=== PATIENT | female | born 1945 | race Caucasian/White ===

== ENCOUNTER 2017-03-24 07:55 | Inpatient (IN) | payer MEDICARE, OTHER ==
[~2017-03-24] VITALS: Ht 160 cm; Wt 84.2 kg
[2017-03-24] MEDS ORDERED: SODIUM CHLORIDE FLUSH 10ML SYR IVF ONE (08:30)
[2017-03-24] MEDS ORDERED: ALBUTEROL/IPRATROPIUM 2.5MG/0.5MG, 3 ML NPPB SCH (08:30)
[2017-03-24] MEDS ORDERED: SODIUM CHLORIDE 0.9% 1,000ML IVBOLUS ONE (08:30)
[2017-03-24] MEDS ORDERED: ALBUTEROL/IPRATROPIUM 2.5MG/0.5MG, 3 ML ONE (08:35)
[2017-03-24 08:51] LABS: RAPID INFLUENZA A Negative (Negative); RAPID INFLUENZA B Negative (Negative)
[2017-03-24 09:13] LABS: ALBUMIN 3.5 g/dL (3.4-5.0); ANION GAP 8 mmol/L (5-15); BASOPHILS % (AUTO) 0 % (0-1); CALCIUM 8.5 mg/dL (8.5-10.1); CHLORIDE 104 mmol/L (98-107); EOSINOPHILS # (AUTO) 0.08 x10^3/uL (0-0.4); EOSINOPHILS % (AUTO) 1 % (1-7); LYMPHOCYTES # (AUTO) 0.43 x10^3/uL (1-3.4); LYMPHOCYTES % (AUTO) 4 % (22-44); MD NO; MEAN CORPUSCULAR HEMOGLOBIN 31.6 pg (27.0-34.8); MEAN CORPUSCULAR HGB CONC 33.6 g/dL (32.4-35.8); MEAN CORPUSCULAR VOLUME 93.9 fL (80-100); MEAN PLATELET VOLUME 7.2 fL (7.4-10.4); MONOCYTES # (AUTO) 0.98 x10^3/uL (0.2-0.8); MONOCYTES % (AUTO) 8 % (2-9); NEUTROPHILS # (AUTO) 10.27 x10^3/uL (1.8-6.8); NEUTROPHILS % (AUTO) 87 % (42-75); PLATELET COUNT 238 x10^3/uL (130-400); RED BLOOD COUNT 4.32 x10^6/uL (3.82-5.3); RED CELL DISTRIBUTION WIDTH 13.8 % (9.6-15.2)
[2017-03-24 09:20] LABS: CREATININE 1.07 mg/dL (0.55-1.02); TROPONIN I < 0.015 ng/mL (0.000-0.045)
[2017-03-24 09:48] LABS: MICROSCOPIC INDICATED
[2017-03-24 09:58] LABS: CULTURE INDICATED? NO
[2017-03-24] MEDS ORDERED: CEFTRIAXONE PMX 1GM/50ML 50 ML ONE (10:13)
[2017-03-24] MEDS ORDERED: ACETAMINOPHEN 325 MG TABLET ONE (10:14)
[2017-03-24] MEDS ORDERED: CEFTRIAXONE PMX 1GM/50ML 50 ML IV ONE (10:30)
[2017-03-24] MEDS ORDERED: ACETAMINOPHEN 325 MG TABLET PO ONE (10:30)
[2017-03-24] MEDS ORDERED: ONDANSETRON ODT 4 MG PO PRN (11:00)
[2017-03-24] MEDS ORDERED: ONDANSETRON 2MG/ML, 2ML IVPush PRN (11:00)
[2017-03-24] MEDS: ACETAMINOPHEN 325 MG TABLET PO SCH ×3 (11:00→23:44)
[2017-03-24] MEDS ORDERED: ENALAPRILAT 1.25 MG/ML, 2ML IVPush PRN (11:00)
[2017-03-24] MEDS ORDERED: LABETALOL 5MG/ML, 20ML IVPush PRN (11:00)
[2017-03-24] MEDS ORDERED: DIPHENHYDRAMINE 25 MG CAPSULE PO PRN (11:00)
[2017-03-24] MEDS ORDERED: DOCUSATE 100 MG CAPSULE PO PRN (11:00)
[2017-03-24] MEDS ORDERED: DIPH1TAB PO (11:27)
[2017-03-24] MEDS ORDERED: PROM25TA10 PO (11:27)
[2017-03-24] MEDS ORDERED: OMNIPAQUE 350 MG/ML, 100ML BOTTLE ONE (11:28)
[2017-03-24] MEDS ORDERED: FLUO20CA19 PO (11:29)
[2017-03-24] MEDS: SODIUM CHLORIDE 0.9% 1,000 ML IV SCH ×2 (12:50→23:44)
[2017-03-24] MEDS: GUAIFENESIN/DM 200-20MG, 10ML UDC PO PRN ×2 (12:50→20:18)
[2017-03-24] MEDS: methylPREDNISolone SOD SUCC 40 MG/ML IVPush SCH ×2 (12:50→20:18)
[2017-03-24] MEDS ORDERED: ALBUTEROL SULFATE 2.5 MG/3 ML ONE (13:13)
[2017-03-24] MEDS ORDERED: ALBUTEROL SULFATE 2.5 MG/3 ML NPPB PRN (13:30)
[2017-03-24 13:54] VITALS: BP 120/56
[2017-03-24 15:35] VITALS: BP 120/56
[2017-03-24] MEDS: HEPARIN 5,000 UNITS/ML, 1ML SQ SCH ×2 (16:43→23:44)
[2017-03-24 19:54] VITALS: BP 110/60
[2017-03-25 01:35] VITALS: BP 109/63
[2017-03-25 06:10] LABS: CHLORIDE 110 mmol/L (98-107)
[2017-03-25] MEDS: ACETAMINOPHEN 325 MG TABLET PO SCH ×3 (06:16→18:00)
[2017-03-25 06:22] LABS: ANION GAP 7 mmol/L (5-15); CALCIUM 8.3 mg/dL (8.5-10.1); CREATININE 0.75 mg/dL (0.55-1.02)
[2017-03-25 06:28] LABS: BASOPHILS % (AUTO) 0 % (0-1); EOSINOPHILS % (AUTO) 0 % (1-7); LYMPHOCYTES % (AUTO) 7 % (22-44); MD NO; MEAN CORPUSCULAR HEMOGLOBIN 31.5 pg (27.0-34.8); MEAN CORPUSCULAR HGB CONC 33.5 g/dL (32.4-35.8); MEAN CORPUSCULAR VOLUME 93.9 fL (80-100); MEAN PLATELET VOLUME 7.4 fL (7.4-10.4); MONOCYTES # (AUTO) 0.38 x10^3/uL (0.2-0.8); MONOCYTES % (AUTO) 5 % (2-9); NEUTROPHILS # (AUTO) 6.45 x10^3/uL (1.8-6.8); NEUTROPHILS % (AUTO) 88 % (42-75); PLATELET COUNT 181 x10^3/uL (130-400); RED BLOOD COUNT 3.49 x10^6/uL (3.82-5.3)
[2017-03-25 07:02] VITALS: BP 124/71
[2017-03-25] MEDS: HEPARIN 5,000 UNITS/ML, 1ML SQ SCH ×2 (09:05→22:07)
[2017-03-25] MEDS: methylPREDNISolone SOD SUCC 40 MG/ML IVPush SCH ×2 (09:05→22:07)
[2017-03-25] MEDS: GUAIFENESIN/DM 200-20MG, 10ML UDC PO PRN ×2 (09:05→19:24)
[2017-03-25] MEDS ORDERED: TRAZODONE 50MG TABLET PO PRN (10:00)
[2017-03-25] MEDS ORDERED: CEFTRIAXONE PMX 1GM/50ML 50 ML IV SCH (10:00)
[2017-03-25] MEDS: AZITHROMYCIN 500 MG in SODIUM CHLORIDE 0.9% 250 ML IV SCH (12:50)
[2017-03-25 12:56] LABS: TROPONIN I < 0.015 ng/mL (0.000-0.045)
[2017-03-25 13:45] VITALS: BP 128/75
[2017-03-25 20:29] VITALS: BP 146/78
[2017-03-25] MEDS: SODIUM CHLORIDE 0.9% 1,000 ML IV SCH (22:00)
[2017-03-25] MEDS ORDERED: DIPHENOXYLATE/ATROPINE TABLET PO PRN (22:30)
[2017-03-26 00:38] VITALS: BP 164/83
[2017-03-26] MEDS ORDERED: CHOLESTYRAMINE LIGHT 4GM PACKET PO PRN (02:30)
[2017-03-26] MEDS: HEPARIN 5,000 UNITS/ML, 1ML SQ SCH ×2 (04:00→11:49)
[2017-03-26 05:18] LABS: ANION GAP 7 mmol/L (5-15); CALCIUM 8.3 mg/dL (8.5-10.1); CHLORIDE 110 mmol/L (98-107)
[2017-03-26 05:19] LABS: CREATININE 0.88 mg/dL (0.55-1.02)
[2017-03-26 05:31] LABS: BASOPHILS % (AUTO) 0 % (0-1); EOSINOPHILS % (AUTO) 0 % (1-7); LYMPHOCYTES # (AUTO) 0.77 x10^3/uL (1-3.4); LYMPHOCYTES % (AUTO) 8 % (22-44); MD NO; MEAN CORPUSCULAR HEMOGLOBIN 31.2 pg (27.0-34.8); MEAN CORPUSCULAR VOLUME 94.6 fL (80-100); MEAN PLATELET VOLUME 7.6 fL (7.4-10.4); MONOCYTES # (AUTO) 0.67 x10^3/uL (0.2-0.8); MONOCYTES % (AUTO) 7 % (2-9); NEUTROPHILS # (AUTO) 8.75 x10^3/uL (1.8-6.8); NEUTROPHILS % (AUTO) 86 % (42-75); PLATELET COUNT 264 x10^3/uL (130-400); RED BLOOD COUNT 3.76 x10^6/uL (3.82-5.3); RED CELL DISTRIBUTION WIDTH 14.2 % (9.6-15.2)
[2017-03-26] MEDS: ACETAMINOPHEN 325 MG TABLET PO SCH ×4 (06:00→16:29)
[2017-03-26 07:42] VITALS: BP 126/68
[2017-03-26] MEDS: methylPREDNISolone SOD SUCC 40 MG/ML IVPush SCH (08:49)
[2017-03-26] MEDS ORDERED: LACTOBACILLUS CHEW TABLET PO SCH (09:00)
[2017-03-26] MEDS: SODIUM CHLORIDE 0.9% 1,000 ML IV SCH (11:20)
[2017-03-26] MEDS: AZITHROMYCIN 500 MG in SODIUM CHLORIDE 0.9% 250 ML IV SCH (12:02)
[2017-03-26 13:07] VITALS: BP 133/68
[2017-03-26] MEDS ORDERED: AZIT500T5 PO (15:13)
[2017-03-26] MEDS ORDERED: ACID1TAB7 PO (15:13)
== END 2017-03-26 17:00 | disposition home or self-care (01) | DRG 871 ==
LOC: ED 10:10 → EDIP 10:38 → 3NE 11:52 → 5SO 03-25 13:38 → DCLOUNGE 03-26 16:50
PROVIDERS: ADMIT Family Medicine; ATTEND Family Medicine
DX: A41.9 Sepsis, unspecified organism (principal); J15.9 Unspecified bacterial pneumonia; J96.01 Acute respiratory failure with hypoxia; N17.9 Acute kidney failure, unspecified; J45.901 Unspecified asthma with (acute) exacerbation; K44.9 Diaphragmatic hernia without obstruction or gangrene; R79.1 Abnormal coagulation profile; K58.0 Irritable bowel syndrome with diarrhea; G25.81 Restless legs syndrome; I49.3 Ventricular premature depolarization; Z87.01 Personal history of pneumonia (recurrent); Z87.891 Personal history of nicotine dependence; Z90.710 Acquired absence of both cervix and uterus; Z88.5 Allergy status to narcotic agent; Z88.2 Allergy status to sulfonamides
CPT/HCPCS: 36415; 71045; 71275; 80048; 81001; 82040; 83605; 83735; 84100; 84145; 84484; 85025; 85379; 87040; 87400; 93005; 94640; 96361; 96365; J0456; J0696; J1644; J2405; J7620; Q9967; J2920; J7030; J7050; Q0163